=== PATIENT | female | born 1970 | race African-American/Black ===

== ENCOUNTER 2017-09-22 08:20 | Outpatient (CLI) | payer BC | END 2017-09-22 08:21 | disposition home or self-care (01) | LOC: BICMAMMO 08:20 | PROVIDERS: ATTEND Obstetrics & Gynecology | DX: Z12.31 Encounter for screening mammogram for malignant neoplasm of breast (principal) | CPT/HCPCS: 77063; 77067 ==

== ENCOUNTER 2020-10-07 14:00 | Outpatient (CLI) | payer BC | END 2020-10-07 14:01 | disposition home or self-care (01) | LOC: BICMAMMO 14:00 | PROVIDERS: ATTEND Physician Assistant | DX: N64.52 Nipple discharge (principal) | CPT/HCPCS: 77066; G0279 ==

== ENCOUNTER 2021-08-27 08:28 | Outpatient (CLI) | payer BC | END 2021-08-27 08:29 | disposition home or self-care (01) | LOC: BICMAMMO 08:28 | PROVIDERS: ATTEND Physician Assistant | DX: N63.10 Unspecified lump in the right breast, unspecified quadrant (principal) | CPT/HCPCS: 77066; G0279 ==